=== PATIENT | female | born 1990 | race Caucasian/White ===

== ENCOUNTER → 2017-10-04 11:55 | Outpatient (CLI) | payer BC, SELFPAY ==
[2017-10-04 12:46] LABS: Color, Urine Yellow (Yellow); Glucose, Dipstick Normal (Normal); Ketone-Dipstick Negative (Negative); Leukocyte Esterase-Dipstick Negative /ul (Negative); Nitrite-Dipstick Negative (Negative); Occult Blood-Urine Negative /ul (Negative); Protein-Dipstick Negative (Negative); Specific Gravity, Urine 1.015 (1.002-1.030); Urine Bilirubin Dipstick Negative (Negative); Urine Clarity Clear (Clear); Urine Urobilinogen Normal (Normal)
[2017-10-04 13:04] LABS: Amphetamine Urine VISTA NEGATIVE (<1000 ng/mL); Barbiturate Urine VISTA NEGATIVE (< 200 ng/mL); Benzodiazepine Urine VISTA NEGATIVE (< 200 ng/mL); Cocaine Urine VISTA NEGATIVE (< 300 ng/mL); Ecstacy Urine VISTA NEGATIVE (< 500 ng/mL); Methadone Urine VISTA NEGATIVE (< 300 ng/mL); PCP Urine VISTA NEGATIVE (< 25 ng/mL); THC Urine VISTA NEGATIVE (< 50 ng/mL); Vista UDS pH Range 7
[2017-10-04 13:07] LABS: Absolute Lymphocyte Count 2.47 X10^3/ul (0.83-4.51); Basophil# 0.05 X10^3/uL; Basophil% 0.4 % (0-1); Eosinophil# 0.12 X10^3/uL; Hemoglobin 14.2 g/dl (12.0-15.0); Lymphocyte # 2.47 X10^3/ul (4.0); Lymphocyte % 19.7 % (19-41); Mean Corpuscular Volume 84.9 fL (81-99); Mean Platelet Vol. 9.8 fl (6.2-12.0); Monocyte# 0.86 X10^3/uL; Monocyte% 6.9 % (0-10); Neutrophil # 8.97 X10^3/uL (2.7-7.7); Neutrophil % 71.5 % (47-70); Platelet Count 255 K/mm3 (150-450); RBC Distribution Width CV 12.3 % (11.6-14.6); White Blood Count 12.5 K/mm3 (4.4-11.0)
[2017-10-04 13:09] LABS: COTININE Drug Screen Negative (<200 ng/mL); Mean Corpuscular Hgb 30.2 pg (27.0-32.0)
[2017-10-04 13:10] LABS: Mean Corp Hgb Conc 34.6 g/gl (32-36); POSITIVE COUNT NO; POSITIVE DIFFERENTIAL NO; POSITIVE MORPHOLOGY NO
[2017-10-04 13:24] LABS: Thyroid Stim Hormone (TSH) 1.66 uIU/mL (0.358-3.74)
[2017-10-04 14:10] LABS: HIV - WCH Non-Reactive (Nonreactive); Rubella IgG 77.5 IU/mL
[2017-10-04 14:15] LABS: Chlamydia Trachomatis by PCR Negative (Negative); Neisserai gonorrhoeae by PCR Negative (Negative); Probe Check PASS; Sample Adequacy Control PASS; Specimen Processing Control PASS
[2017-10-05 09:31] LABS: HEPATITIS B SURFACE AG Negative (Negative); Hep C Antibodies <0.1 s/co ratio (0.0-0.9)
[2017-10-11 05:19] LABS: Prenatal RPR NONREACTIVE (NONREACTIVE)
[2017-10-22 11:08] LABS: HPV Reflexed? NOT INDICATED
== END ==
PROVIDERS: Visit Provider Obstetrics & Gynecology
DX: Z34.81 Encounter for supervision of other normal pregnancy, first trimester (principal); Z12.4 Encounter for screening for malignant neoplasm of cervix; Z11.3 Encounter for screening for infections with a predominantly sexual mode of transmission
CPT/HCPCS: 36415; 80307; 81002; 84443; 85025; 86703; 86762; 86803; 87340; 87491; 87591; 88175; G0145

== ENCOUNTER → 2018-01-17 09:12 | Outpatient (CLI) | payer BC, SELFPAY ==
[2018-01-17 10:48] LABS: Hematocrit 37.1 % (37-47); Mean Corpuscular Hgb 31.3 pg (27.0-32.0); Mean Corpuscular Volume 89.2 fL (81-99); Mean Platelet Vol. 10.3 fl (6.2-12.0); Platelet Count 203 K/mm3 (150-450); RBC Distribution Width CV 12.7 % (11.6-14.6); RBC Distribution Width SD 40.6 fl (35.1-43.9); Red Blood Count 4.16 M/mm3 (4.2-5.4); White Blood Count 11.5 K/mm3 (4.4-11.0)
[2018-01-17 10:51] LABS: Glucose Challenge Gest 1H 50g 97 mg/dL (70-140)
[2018-01-17 10:52] LABS: Scan Indicated on CBC? Y/N NO
== END ==
PROVIDERS: Visit Provider Obstetrics & Gynecology
DX: Z34.83 Encounter for supervision of other normal pregnancy, third trimester (principal)
CPT/HCPCS: 36415; 82950; 85027

== ENCOUNTER → 2018-03-13 10:12 | Outpatient (CLI) | payer BC, SELFPAY ==
--- OUTSIDE RECORDS SUMMARY | 2018-05-08 12:06 | XMS RPT_ITS ---
:1990 Author Organization OHIP Care Team Providers Name Role Phone Dr. America Salcido Admitting Unavailable Dr. America Salcido Attending Unavailable Seals, Jaziel Attending Unavailable Seals, Jaziel Attending Unavailable Seals, Jaziel Attending Unavailable PROBLEMS PROBLEMS DATE TYPE CONDITION / CODE ATTENDING STATUS SOURCE 01/17/2018 Unknown Z34.83 - Encounter Jaziel Flores Active Estuardo for supervision of Community other normal Hospital , third Repository trimester / Z34.83(ICD-10) 10/04/2017 Unknown Z34.81 - Encounter SealJaziel sahni for supervision of Community other normal Hospital , first Repository trimester / Z34.81(ICD-10) 10/04/2017 Unknown Z12.4 - Encounter Jaziel Flores for screening for Community malignant neoplasm Hospital of cervix / Repository Z12.4(ICD-10) 10/04/2017 Unknown Z11.3 - Encounter Jaziel Flores for screening for Community infections with a Hospital predominantly Repository sexual mode of transmission / Z11.3(ICD-10) PROCEDURES PROCEDURES No Procedure Records FoundRESULTS RESULTS Observed: 03/13/2018 Status: F Source: ESTUARDO CULTURE, GROUP B 9:15 AM [facility] STREPTOCOCCUS REPOSITORY RITU Culture Group B Beta Streptococcus is not isolated. Performed By: #### M100.1800 #### [facility] [address] [place], [address] GLUCOSE CHALLENGE GEST Collected: 01/17/2018 Status: F Source: ESTUARDO 1H 50G 9:17 AM [facility] REPOSITORY TYPE CODE TESTS RESULT OUT OF RANGE REFERENCE UNITS LAB L501.0250 70-140 mg/dL Normal GLU GEST 97 50g 1H Performed By: #### L501.0250 #### [facility] [address] [place] [place], [address] CBC-COMPLETE BLOOD CNT Collected: 01/17/2018 Status: F Source: ESTUARDO NO DIFF 9:17 AM [facility] REPOSITORY TYPE CODE TESTS RESULT OUT OF RANGE REFERENCE UNITS LAB L100.1000 4.4-11.0 K/mm3 High WBC 11.5 LAB L100.1200 4.2-5.4 M/mm3 Low RBC 4.16 LAB L100.1300 12.0-15.0 g/dl Normal HGB 13.0 LAB L100.1400 37-47 % Normal HCT 37.1 LAB L100.1500 81-99 fL Normal MCV 89.2 LAB L100.1600 27.0-32.0 pg Normal MCH 31.3 LAB L100.1700 32-36 g/gl Normal MCHC 35.0 LAB L100.1810 11.6-14.6 % Normal RDW CV 12.7 LAB L100.1820 35.1-43.9 fl Normal RDW SD 40.6 LAB L100.1900 150-450 K/mm3 Normal PLT 203 LAB L100.2000 6.2-12.0 fl Normal MPV 10.3 Performed By: #### L100.0500 #### [facility] [address] [place], [address] URINE DRUG SCREEN Collected: 10/04/2017 Status: F Source: ESTUARDO (VISTA) 12:01 PM [facility] REPOSITORY Order Comment: List of Drugs Taken or Suspected? UNK TYPE CODE TESTS RESULT OUT OF RANGE REFERENCE UNITS LAB L505.0075 TO BE Normal CONFIRMED Result Comment: CONFIRMATORY TESTING FOR ALL POSITIVE URINE DRUG SCREEN RESULTS WILL ONLY BE SENT OUT UPON PHYSICIAN ORDER. VISTA Urine Drug Screen methods provide only preliminary analytical test results. A more specific alternate chemical method must be used in order to obtain a confirmed analytical result. Gas chromatography/mass spectrometery (GC/MS) is the preferred confirmatory method. Clinical consideration and professional judgement should be applied to any drug of abuse test result, particularly when preliminary positive results are used. URINE TCA TESTING MUST BE ORDERED SEPARATELY. USE TEST MNEMONIC: [facility] LAB L505.5005 VISTA UDS PH 7 Normal LAB L505.5015 <1000 ng/mL AMPHETAMINES Normal NEGATIVE LAB L505.5025 < 200 ng/mL BARBITIURATES Normal NEGATIVE LAB L505.5035 < 200 ng/mL BENZODIAZIPINE Normal NEGATIVE LAB L505.5045 < 300 ng/mL COCAINE Normal NEGATIVE LAB L505.5055 < 500 ng/mL ECSTACY Normal NEGATIVE LAB L505.5065 < 300 ng/mL METHADONE Normal NEGATIVE LAB L505.5075 < 300 ng/mL OPIATES Normal NEGATIVE LAB L505.5085 < 25 ng/mL PCP Normal NEGATIVE LAB L505.5095 < 50 ng/mL THC Normal NEGATIVE Performed By: #### L505.5000, L505.6240 #### [facility] [address] [place], [address] NICOTINE URINE DRUG Collected: 10/04/2017 Status: F Source: HESPERIA SCREEN 12:01 PM [facility] REPOSITORY Order Comment: List of Drugs Taken or Suspected? UNK TYPE CODE TESTS RESULT OUT OF RANGE REFERENCE UNITS LAB L505.6250 TO BE Normal CONFIRMED Result Comment: CONFIRMATORY TESTING FOR ALL POSITIVE URINE DRUG SCREEN RESULTS WILL ONLY BE SENT OUT UPON PHYSICIAN ORDER. The results of Urine Drug Screen methods provide only preliminary analytical test results. A more specific alternate chemical method must be used in order to obtain a confirmed analytical result. Gas chromatography/mass spectrometery (GC/MS) is the preferred confirmatory method. Clinical consideration and professional judgement should be applied to any drug of abuse test result, particularly when preliminary positive results are used. LAB L505.6270 <200 ng/mL Normal COT DRG Negative SCREEN Result Comment: Cotinine is the first-stage metabolite of Nicotine. Performed By: #### L505.5000, L505.6240 #### [facility] [address] [place], [address] URINALYSIS, ROUTINE Collected: 10/04/2017 Status: F Source: ESTUARDO (DIPSTICK) 12:01 PM [facility] REPOSITORY Order Comment: How was Urine Obtained? Urine, Random TYPE CODE TESTS RESULT OUT OF RANGE REFERENCE UNITS LAB L400.3000 Yellow COLOR Normal Yellow LAB L400.3050 Clear Normal CLARITY Clear LAB L400.3200 Normal mg/dl Normal GLUCOSE, UR Normal LAB L400.3300 Negative mg/dL Normal BILIRUBIN URINE Negative LAB L400.3400 Negative mg/dl Normal KETONE UR Negative LAB L400.3465 1.002-1.030 Normal SP.GR. DIPSTX 1.015 LAB L400.3550 5.0 - 8.0 pH UR Normal 7.0 LAB L400.3600 Negative mg/dl PROT Normal DIPSTX Negative LAB L400.3700 Normal mg/dl Normal UROBILI Normal LAB L400.3750 Negative Normal NITRITE UR Negative LAB L400.3780 Negative /ul Normal OCCULT BLOOD-UR Negative LAB L400.3800 Negative /ul LEUK Normal ESTERASE Negative Performed By: #### L400.2010 #### [facility] [address] [place], [address] CBC W/DIFF, AUTOMATED Collected: 10/04/2017 Status: F Source: ESTUARDO 12:01 PM [facility] REPOSITORY TYPE CODE TESTS RESULT OUT OF RANGE REFERENCE UNITS LAB L100.1000 4.4-11.0 K/mm3 High WBC 12.5 LAB L100.1200 4.2-5.4 M/mm3 Normal RBC 4.70 LAB L100.1300 12.0-15.0 g/dl Normal HGB 14.2 LAB L100.1400 37-47 % Normal HCT 41.0 LAB L100.1500 81-99 fL Normal MCV 84.9 LAB L100.1600 27.0-32.0 pg Normal MCH 30.2 LAB L100.1700 32-36 g/gl Normal MCHC 34.6 LAB L100.1810 11.6-14.6 % Normal RDW CV 12.3 LAB L100.1820 35.1-43.9 fl Normal RDW SD 37.0 LAB L100.1900 150-450 K/mm3 Normal PLT 255 LAB L100.2000 6.2-12.0 fl Normal MPV 9.8 LAB L100.2100 47-70 % High NEUT% 71.5 LAB L100.2200 19-41 % Normal LY% 19.7 LAB L100.2300 0-10 % Normal MONO% 6.9 LAB L100.2400 0-5 % Normal EO% 1.0 LAB L100.2500 0-1 % Normal BASO% 0.4 LAB L100.2550 0.0-0.9 % Normal IM GRAN % 0.500 Result Comment: IG% - Immature Granulocytes (promyelocytes, myelocytes and metamyelocytes) > 1% indicates that a LEFT SHIFT is Present. LAB L100.2620 2.0-7.7 X10 3/uL High Absolute Neut 9.0 LAB L100.2720 0.83-4.51 X10 3/ul Normal Absolute Lymph 2.47 Performed By: #### L100.0100 #### [facility] [address] THYROID STIM HORMONE Collected: 10/04/2017 Status: F Source: HESPERIA (TSH) 12:01 PM [facility] REPOSITORY TYPE CODE TESTS RESULT OUT OF RANGE REFERENCE UNITS LAB L501.9520 0.358-3.74 uIU/mL Normal TSH 1.66 Performed By: #### L501.9520 #### [facility] [address] [place], [address] RUBELLA IGG Collected: 10/04/2017 Status: F Source: HESPERIA 12:01 PM [facility] REPOSITORY TYPE CODE TESTS RESULT OUT OF RANGE REFERENCE UNITS LAB L509.4000 IU/mL Normal Rubella IgG 77.5 Result Comment: Antibody results Interpretation of Immune Status < 5 IU/ml Presumed Non-immune 5 - < 10 IU/ml Equivocal > or = 10 IU/ml Presumed Immune Performed By: #### L509.4000, L3890.6005 #### [facility] [address] [place], [address] HIV - WCH Collected: 10/04/2017 Status: F Source: ESTUARDO 12:01 PM [facility] REPOSITORY TYPE CODE TESTS RESULT OUT OF RANGE REFERENCE UNITS LAB L3890.6005 Nonreactive Normal HIV - WCH Non-Reactive Performed By: #### L509.4000, L3890.6005 #### [facility] [address] [place], [address] T AND S-NO Collected: 10/04/2017 Status: F Source: HESPERIA CHARGE W/PNP 12:01 PM [facility] REPOSITORY Order Comment: Reason for Type AND Screen/Red Cells: Surgery? N TYPE CODE TESTS RESULT OUT OF RANGE REFERENCE UNITS LAB B10.0800 A Normal BLOOD POSITIVE TYPE GEL LAB B100.4050 Normal Ab SCREEN NEGATIVE GEL Performed By: #### B100.7550 #### [facility] [address] [place], [address] HEPATITIS B SURFACE Collected: 10/04/2017 Status: F Source: ESTUARDO AG 12:01 [facility] REPOSITORY TYPE CODE TESTS RESULT OUT OF RANGE REFERENCE UNITS LAB L3100.0400 Negative Normal HB Negative SURF AG Result Comment: Performed at: - [facility] [id number] [employer] Facing Baster: Patricio Wang PhD, Phone: [phone] Performed By: #### L3100.0390, L3100.0625 #### [facility] (refer to report for specific site) refer to report for address and phone number HEPATITIS C ANTIBODIES Collected: 10/04/2017 Status: F Source: ESTUARDO 12:01 [facility] REPOSITORY TYPE CODE TESTS RESULT OUT OF RANGE REFERENCE UNITS LAB L3100.0650 0.0-0.9 s/co ratio Normal HEP C AB <0.1 Result Comment: Negative: < 0.8 Indeterminate: 0.8 - 0.9 Positive: > 0.9 The CDC recommends that a positive HCV antibody result be followed up with a HCV Nucleic Acid Amplification test (214505). Performed By: #### L3100.0390, L3100.0625 #### [facility] (refer to report for specific site) refer to report for address and phone number RPR Collected: 10/04/2017 Status: F Source: HESPERIA 12:01 PM [facility] REPOSITORY TYPE CODE TESTS RESULT OUT OF REFERENCE UNITS RANGE LAB L700.5100 NONREACTIVE Normal RPR NONREACTIVE Performed By: #### L700.5100 #### [facility] [address] [place], [address] CT/NG WCH BY PCR Collected: 10/04/2017 Status: F Source: HESPERIA 12:00 [facility] REPOSITORY TYPE CODE TESTS RESULT OUT OF RANGE REFERENCE UNITS LAB L8200.2100 Negative Normal Chlam Negative Trac PCR LAB L8200.2200 Negative Normal NG by Negative PCR Performed By: #### L8200.2000 #### [facility] [address] [place], [address] PAP I-G W/RFX HRHPV Collected: 10/04/2017 Status: F Source: HESPERIA 12:00 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 LAB L7400.0900 Normal ADEQ Result Comment: Satisfactory for evaluation. Endocervical and/or squamous metaplastic cells (endocervical component) are present. LAB L7400.1400 Normal PERFORM Result Comment: Performed by Meño Nolasco Retanner (ASCP) LAB L7400.2550 Normal COMMENT Result Comment: The pap smear is a screening test designated to aid in the detection of pre-malignant and malignant conditions of the uterine cervix. It is not a diagnostic procedure and should not be used as the sole means of detecting cervical cancer. Both false-positive and false-negative reports do occur. LAB L7400.2575 Normal TEST METHOD Result Comment: This liquid based ThinPrep(R) pap test was screened with the use of an image guided system. LAB L7400.2600 Normal COMM Result Comment: The HPV DNA reflex criteria were not met with this specimen result therefore, no HPV testing was performed. Performed By: #### L7400.0350 #### [facility] (refer to report for specific site) refer to report for address and phone number Observed: 04/13/2017 Status: F Source: [facility] CULTURE, URINE 1:25 PM [facility] REPOSITORY Test Name: Culture, Urine Culture Status: Final Culture Report: Growth Micro Source: Urine - clean catch ORGANISM ID: 1 - 50,000-75,000 CFU/ml STAPHYLOCOCCUS SAPROPHYTICUS ANTIBIOTIC INTERPRETATION ALVAREZ STATUS Clindamycin S 0.25 C Doxycycline S <= 0.5 C Nitrofurantoin S <= 16 C Oxacillin R 2 C Vancomycin S 1 C Performed By: #### URCUL #### Unless otherwise noted, all testing performed by [address] [address] CLIA: [id number] Political Reporter: Martin John M.D. ALLERGIES ALLERGIES No Allergies Records FoundENCOUNTERS ENCOUNTERS ADMIT/DISCHARGE ACCOUNT NUMBER ADMITTING ENCOUNTER LOCATION SOURCE CLASS 03/13/2018 [id number] [facility] ding:[facility] Repository 01/17/2018 [id number] [facility] ding:WOBLAB Repository 10/04/2017 [id number] [facility] ding:WOBLAB Repository 04/13/[id number] Omari Ambulatory [facility] Repository PAYERS PAYERS ENCOUNTER GUARANTOR PAYER SUBSCRIBER SOURCE 03/13/2018 ZIGGY Primary Emma MouldDOB: Estuardo [id number] Insurance:ANTHEMPolic [id number] Number[facility] [address] [place], [place] [id number] Repository [address]Uaq: [phone]) Date:[id number] [phone] () [id number], [place] [address]RH: 03/13/2018 Secondary NOT GIVENUNK [place] Insurance:SELF PAY [facility] Number: Effective Repository Date:2018-03-13 01/17/2018 Emma [id number] Primary Emma MouldDOB: Estuardo [address] [address] Insurance:ANTHEMPolic [id number] [address] y Number: Hospital [address]Psl: 419 [id number] Repository [phone] () Date:[id number] [address] [place] [address]: 01/17/2018 Secondary NOT GIVENUNK [place] Insurance:SELF PAY [facility] Number: Effective Repository Date:2018-01-17 10/04/2017 ZIGGY Primary Emma MouldDOB: [place] [id number] Insurance:ANTHEMPolic [id number] y Number: [address] [id number] Repository [address]Ffb: [phone]) Date:[id number] [phone] () [address] [place] [address]IY: 10/04/2017 Secondary NOT GIVENUNK [place] Insurance:SELF PAY Community [facility] Number: Effective Repository Date:2017-10-04 04/13/2017 Primary ZIGGY N [facility] Insurance:[employer] Cross MOULDDOB: Celestine Number: [id number] [facility] [id number] [address] [place] [address] RD Repository Date:Plan Name:[address] [address]Oou: ()
== END ==
PROVIDERS: Visit Provider Obstetrics & Gynecology
DX: Z36.85 Encounter for antenatal screening for Streptococcus B (principal)
CPT/HCPCS: 87081

== ENCOUNTER 2018-04-15 18:58 | Inpatient (IN) | payer BC, SELFPAY ==
[2018-04-15 19:37] VITALS: BMI 32.9
[2018-04-15] MEDS: Lactated Ringers 1,000 ML 50 ML IV (19:45)
[2018-04-15 20:13] LABS: Hematocrit 37.7 % (37-47); Hemoglobin 13.1 g/dl (12.0-15.0); Mean Corp Hgb Conc 34.7 g/gl (32-36); Mean Corpuscular Hgb 30.1 pg (27.0-32.0); Mean Corpuscular Volume 86.7 fL (81-99); Mean Platelet Vol. 10.3 fl (6.2-12.0); Platelet Count 235 K/mm3 (150-450); RBC Distribution Width CV 13.2 % (11.6-14.6); RBC Distribution Width SD 40.1 fl (35.1-43.9); Red Blood Count 4.35 M/mm3 (4.2-5.4); White Blood Count 11.4 K/mm3 (4.4-11.0)
[2018-04-15 20:14] LABS: Scan Indicated on CBC? Y/N NO
[2018-04-15] MEDS: 0.9% Saline Lock 10 ML Syringe IV (20:56)
[2018-04-15] MEDS: miSOPROStol 25 MCG TABLET VAGINAL (20:56)
[2018-04-16] MEDS: miSOPROStol 25 MCG TABLET VAGINAL ×3 (00:59→09:46)
[2018-04-16] MEDS: 0.9% Saline Lock 10 ML Syringe IV ×2 (09:24→14:07)
--- NOTE | 2018-04-16 12:14 | PCM.PN.OB ---
Subjective: Comfortable. Objective: Afeb VSS FHR tracing Cat 1. - Physical Exam General: Alert, Oriented x3, Cooperative, No apparent distress Lungs: Clear to auscultation, Normal air movement Cardiovascular: Regular rate, Regular Rhythm Abdomen: Soft, Non Tender, Non-Distended, Gravid, Appropriate for Gestational Age Extremities: No edema, No Calf Tenderness Skin: No rashes Neurological: Neuro grossly intact Psych/Mental Status: Normal Affect Comment: CE 2-3 40% -2 Weight: 204 lb 2.369 oz Body Mass Index (BMI) 32.9 Laboratory Tests Past 24 Hrs 04/15/18 04/15/18 19:45 19:45 WBC 11.4 H RBC 4.35 Hgb 13.1 Hct 37.7 MCV 86.7 MCH 30.1 MCHC 34.7 RDW 13.2 RDW Differential 40.1 Plt Count 235 MPV 10.3 Blood Type A POSITIVE Antibody Screen NEGATIVE Medical Necessity - Tobacco Use Smoking Status: Never smoker Assessment/Plan Now s/p 4 doses of cytote. Cervix now more favorable. Will start pitocin augmentation. AROM once ray regularly.
[2018-04-16] MEDS: Oxytocin 30 units/NS 500 ml 30 UNITS/500 ML IV.SOLN IV (14:03)
--- NOTE | 2018-04-16 17:00 | PCM.PN.OB ---
Subjective: Feeling contractions somewhat Objective: Afeb VSS FHR tracing Cat 1 - Physical Exam General: Alert, Oriented x3, Cooperative, No apparent distress Abdomen: Soft, Non Tender, Non-Distended, Gravid, Appropriate for Gestational Age Skin: No rashes Neurological: Neuro grossly intact Psych/Mental Status: Normal Affect Comment: CE /-2 Weight: 204 lb 2.369 oz Body Mass Index (BMI) 32.9 Laboratory Tests Past 24 Hrs 04/15/18 04/15/18 19:45 19:45 WBC 11.4 H RBC 4.35 Hgb 13.1 Hct 37.7 MCV 86.7 MCH 30.1 MCHC 34.7 RDW 13.2 RDW Differential 40.1 Plt Count 235 MPV 10.3 Blood Type A POSITIVE Antibody Screen NEGATIVE Medical Necessity - Tobacco Use Smoking Status: Never smoker Assessment/Plan AROM performed with clear fluid noted. Pitocin at 8 mu/min.
[2018-04-16] MEDS: Lactated Ringers 1,000 ML 50 ML IV (22:30)
[2018-04-16] MEDS: fentaNYL-bupivacaine (epidural) 100 ML BAG EPIDURAL (23:16)
[2018-04-17] MEDS: Lactated Ringers 1,000 ML 50 ML IV (01:30)
[2018-04-17] MEDS: fentaNYL-bupivacaine (epidural) 100 ML BAG EPIDURAL (03:32)
--- NOTE | 2018-04-17 04:49 | PCM.PN.OB ---
Subjective: Pushing well. Comfortable with epidural. Objective: Afeb VSS FHR with some minor decels with pushing efforts. Overall reassuring. - Physical Exam General: Alert, Oriented x3, Cooperative, No apparent distress Comment: FD +2 station Weight: 204 lb 2.369 oz Body Mass Index (BMI) 32.9 Medical Necessity - Tobacco Use Smoking Status: Never smoker Assessment/Plan Pushing well. Expect soon.
--- NOTE | 2018-04-17 04:56 | PCM.OB.VAG ---
Vaginal Delivery Maternal Presentation: Medically Indicated Induction 41 weeks for post dates induction Method of Induction: Pitocin, Amniotomy, Cytotec Medical Reason for Induction: Post term Amniotic Membrane Rupture Type: Artificial Rupture of Membrane time: 1644 Amniotic Fluid Description: Clear Final MICHELL: 04/09/18 Final MICHELL Source: US <20 weeks Gestational age: 41 Weeks and 1 Days Date of Procedure: 04/17/18 Pre-Operative Diagnosis: Labor Post-Operative Diagnosis: same Surgery/ Procedure Performed: Spontaneous Vaginal Delivery Anesthesiologist: Bryce Bourne Type of Anesthesia: Epidural Description of Procedure: Received 4 doses of vaginal cytotec then was started on pitocin augmentation. AROM was performed once contraction pattern established. Progressed to FD then pushed for about 2 1/2 hours to deliver a live female without complication. There was a loose cord around the neck at delivery reduced prior to delivery of the body. The nose and mouth were suctioned with bulb suction. The baby dried and placed on Mom's chest. Delayed cord clamping was employed. Apgars were 8/9. The placenta delivered spontaneously intact with a centrally located 3VC. The placenta was heart shaped. The uterus contracted well. A small first degree posterior vaginal tear was repaired with 2-0 Vicryl. Presentation: Vertex Placental Delivery Description: Spontaneous Placenta Disposition: [facility] Percentage of Placenta Abruption: 0 Cord Vessel Description: 3 Vessels Drain: Johnson to straight drain Estimated Blood Loss: 300cc Infant A gender: Female (1 minute): 8 (5 minute): 9 Episiotomy Description: None Laceration: Midline, Vaginal Extension/lac, 1st degree Medications given after delivery: IV Pitocin Complications: None
--- NOTE | 2018-04-17 04:59 | DCINST_ITS ---
Discharge Diet: No Restrictions Discharge Activity: Return to Normal Activity, May Drive, May Shower Return to work on:: 06/16/18 May shower in (days): 0 May resume sexual activity in: 6 weeks Call your doctor if your incision/area has: Sudden Increased Bleeding, Foul Smelling Discharge Call your doctor if you observe: Fever of 101 or Higher, Inability to urinate, Inability to have a bowel movement, Using more than one pad per hour, Shortness of breath, Chest pain, Calf discomfort, Uncontrolled pain Cleanse incision/area with: Soap & Water Additional Instructions: If you experience any of the following, contact your healthcare provider. * Bleeding that soaks a pad every hour for 2 hours * Fever 100.4 or higher * Unrelieved incision or abdominal pain * Swelling, redness, discharge or bleeding from your incision or episiotomy site * Your incision begins to separate * Problems urinating (including inability to urinate or burning while urinating). * Visual changes * Severe headache * Flu-like symptoms * Pain or redness in one of both of your breasts * Pain, warmth, tenderness or swelling in your legs, especially the calf area * Frequent nausea and vomiting * Symptoms of depression or anxiety If you experience any of the following, call 911 or go to the nearest Emergency Room. * Chest pain * Problems breathing * Seizure activity * Partial or complete paralysis of a body part, slurred speech, weakness or drooping of the face, or a sudden inability to walk or hold your balance Allergies/Adverse Reactions: Allergies cefprozil [From Cefzil] Allergy (Verified 04/15/18 19:40) Rash Medications to take at Discharge Vits [Prenatabs FA ] 1 tablet PO DAILY 04/15/18 Ibuprofen 600 mg PO 4X/DAY #30 tab 04/17/18 The following prescriptions were given: Ibuprofen 600 mg PO 4X/DAY #30 tab Please Follow Up With: Jaziel Flores MD When: 6 weeks Primary Care Physician: Care Physician,No Primary [Primary Care Provider] - Test Results: Test results from this visit will be discussed in further detail at your follow- up appointment, if applicable. Proposed Discharge Date: 04/19/18
[2018-04-17] MEDS: Oxytocin 30 units/NS 500 ml 30 UNITS/500 ML IV.SOLN 334 UNITS IV (05:44)
[2018-04-17] MEDS: Oxytocin 30 units/NS 500 ml 30 UNITS/500 ML IV.SOLN 167 UNITS IV (06:14)
[2018-04-17] MEDS: Prenatal Vits Tablet 1 TABLET PO (11:02)
[2018-04-17 12:00] VITALS: BP 119/71; PULSE 72; RESP 16; TEMP 36.1; O2SAT 99
--- NOTE | 2018-04-17 12:00 | NURSING ---
infant awake, but having difficulty latching. clamps down instead of sucking. AMANDA VargasCLC notified and will come see pt
[2018-04-17 15:54] VITALS: BP 119/67; PULSE 89; RESP 14; TEMP 36.8; O2SAT 97
[2018-04-17 19:29] VITALS: BP 119/81; PULSE 76; RESP 18; TEMP 36.7; O2SAT 97
[2018-04-18 00:48] VITALS: BP 134/67; PULSE 89; RESP 18; TEMP 36.6
[2018-04-18] MEDS: Ibuprofen 600 MG Tablet PO (01:01)
[2018-04-18 04:10] VITALS: BP 108/66; PULSE 88; RESP 18; TEMP 36.6
[2018-04-18 04:31] LABS: Hemoglobin 11.7 g/dl (12.0-15.0); Mean Corp Hgb Conc 34.4 g/gl (32-36); Mean Corpuscular Hgb 30.4 pg (27.0-32.0); Mean Corpuscular Volume 88.3 fL (81-99); Mean Platelet Vol. 9.6 fl (6.2-12.0); Platelet Count 183 K/mm3 (150-450); RBC Distribution Width CV 13.2 % (11.6-14.6); RBC Distribution Width SD 40.7 fl (35.1-43.9); Red Blood Count 3.85 M/mm3 (4.2-5.4); White Blood Count 16.5 K/mm3 (4.4-11.0)
[2018-04-18 04:32] LABS: Scan Indicated on CBC? Y/N NO
[2018-04-18 08:40] VITALS: BP 121/81; PULSE 66; RESP 16; TEMP 36.4
--- NOTE | 2018-04-18 08:42 | PCM.PN.OB ---
Subjective: No specific complaints. Bleeding light. Breast feeding. Objective: Afeb VSS Hgb stable PP day#1. - Physical Exam General: Alert, Oriented x3, Cooperative, No apparent distress Lungs: Clear to auscultation, Normal air movement Cardiovascular: Regular rate, Regular Rhythm Abdomen: Soft, Non Tender, Non-Distended, - - Fundus firm nontender Extremities: No edema Skin: No rashes Neurological: Neuro grossly intact Psych/Mental Status: Normal Affect Comment: Lochia appropriate. Vital Signs Temp Pulse Resp BP Pulse Ox 97.8 F 88 18 108/66 97 04/18/18 04:10 04/18/18 04:10 04/18/18 04:10 04/18/18 04:10 04/17/18 19:29 Oxygen Delivery Method Room Air Weight: 204 lb 2.369 oz Body Mass Index (BMI) 32.9 Intake and Output for Last 24 Hours 04/16/18 04/17/18 04/18/18 23:59 23:59 23:59 Intake Total 4006 / 4006 Output Total 1800 / 1800 Balance 2206 / 2206 Laboratory Tests Past 24 Hrs 04/18/18 04:15 WBC 16.5 H RBC 3.85 L Hgb 11.7 L Hct 34.0 L MCV 88.3 MCH 30.4 MCHC 34.4 RDW 13.2 RDW Differential 40.7 Plt Count 183 MPV 9.6 Medical Necessity - Tobacco Use Smoking Status: Never smoker Assessment/Plan Doing well on PP day#1. Continue routine PP care.
--- NOTE | 2018-04-18 08:46 | PCM.DC.SUM ---
Discharge Date and Diagnosis Date of Admission: 04/15/18 Date of Discharge: 04/19/18 - Primary Discharge Diagnosis Post dates , Hospital Course and Treatment Operations: None Procedures: - - Cytotec, pitocin induction of labor. Epidural, Summary of Care Provided: The patient is a 27 year old F [admitted at 41 weeks ega for induction of labor due to postdates . Cytotec/pitocin induction was performed with resultant without complication. Post course unremarkable. Discharged home on PP day#2.] - Physical Exam Vital Signs Temp Pulse Resp BP Pulse Ox 97.8 F 88 18 108/66 97 04/18/18 04:10 04/18/18 04:10 04/18/18 04:10 04/18/18 04:10 04/17/18 19:29 Oxygen Delivery Method Room Air Weight: 204 lb 2.369 oz Body Mass Index (BMI) 32.9 Intake and Output for Last 24 Hours 04/16/18 04/17/18 04/18/18 23:59 23:59 23:59 Intake Total 4006 / 4006 Output Total 1800 / 1800 Balance 2206 / 2206 Laboratory Tests Past 24 Hrs 04/18/18 04:15 WBC 16.5 H RBC 3.85 L Hgb 11.7 L Hct 34.0 L MCV 88.3 MCH 30.4 MCHC 34.4 RDW 13.2 RDW Differential 40.7 Plt Count 183 MPV 9.6 Discharge Diet: No Restrictions Discharge Activity: Return to Normal Activity, May Drive, May Shower Return to work on:: 06/16/18 May shower in (days): 0 May resume sexual activity in: 6 weeks Call your doctor if your incision/area has: Sudden Increased Bleeding, Foul Smelling Discharge Call your doctor if you observe: Fever of 101 or Higher, Inability to urinate, Inability to have a bowel movement, Using more than one pad per hour, Shortness of breath, Chest pain, Calf discomfort, Uncontrolled pain Cleanse incision/area with: Soap & Water Home Medications: Medications to take at Discharge Vits [Prenatabs FA ] 1 tablet PO DAILY 04/15/18 Ibuprofen 600 mg PO 4X/DAY #30 tab 04/17/18 Following Prescrptions Were Given to Patient: Ibuprofen 600 mg PO 4X/DAY #30 tab Primary Care Physician: Care Physician,No Primary [Primary Care Provider] - Please Follow Up With: Jaziel Flores MD When: 6 weeks Disposition: Home Minutes spent on discharge:: 15 Patient Condition:: Good Medical Necessity - Tobacco Use Smoking Status: Never smoker Meaningful Use Info Meaningful Use Diagnoses (Choose all that apply): None applicable
[2018-04-18] MEDS: Prenatal Vits Tablet 1 TABLET PO (13:36)
[2018-04-18 14:00] VITALS: BP 116/66; PULSE 81; RESP 16; TEMP 36.5
== END 2018-04-18 19:05 | disposition home or self-care (01) | DRG 807 ==
PROVIDERS: Admitting Provider Obstetrics & Gynecology; Referring Provider Obstetrics & Gynecology; Visit Provider Obstetrics & Gynecology
DX: O48.0 Post-term pregnancy (principal); O69.81X0 Labor and delivery complicated by cord around neck, without compression, not applicable or unspecified; O76 Abnormality in fetal heart rate and rhythm complicating labor and delivery; O70.0 First degree perineal laceration during delivery; Z3A.41 41 weeks gestation of pregnancy; Z37.0 Single live birth
CPT/HCPCS: 59025; 59050; 85027; 86850; 86900; 99218; J7120; A4216; G0378

== ENCOUNTER 2018-04-21 12:20 | Outpatient (CLI) | payer BC, SELFPAY | END 2018-04-21 13:30 | disposition home or self-care (01) | LOC: WPOUT 12:39 → WP 12:40 | PROVIDERS: Referring Provider Obstetrics & Gynecology; Visit Provider Obstetrics & Gynecology | DX: Z39.1 Encounter for care and examination of lactating mother (principal) | CPT/HCPCS: 96152 ==

== ENCOUNTER → 2018-11-24 11:02 | Outpatient (CLI) | payer BC, SELFPAY ==
[2018-11-24 13:10] LABS: hCG Titer Quant., Serum < 1 mIU/mL (1-3)
== END ==
PROVIDERS: Visit Provider Obstetrics & Gynecology
DX: N92.1 Excessive and frequent menstruation with irregular cycle (principal)
CPT/HCPCS: 36415; 84702

== ENCOUNTER → 2019-01-19 11:25 | Outpatient (CLI) | payer BC, SELFPAY ==
[2019-01-19 17:17] LABS: Chlamydia Trachomatis by PCR Negative (Negative); Neisserai gonorrhoeae by PCR Negative (Negative); Probe Check PASS; Sample Adequacy Control PASS; Specimen Processing Control PASS
== END ==
PROVIDERS: Visit Provider Obstetrics & Gynecology
DX: Z11.3 Encounter for screening for infections with a predominantly sexual mode of transmission (principal)
CPT/HCPCS: 87491; 87591

== ENCOUNTER → 2019-02-05 11:53 | Outpatient (CLI) | payer BC, SELFPAY ==
[2019-02-05 13:42] LABS: Color, Urine Yellow (Yellow); Glucose, Dipstick Normal (Normal); Ketone-Dipstick Negative (Negative); Leukocyte Esterase-Dipstick 25 /ul (Negative); Nitrite-Dipstick Negative (Negative); Occult Blood-Urine Negative /ul (Negative); Protein-Dipstick Negative (Negative); Urine Bilirubin Dipstick Negative (Negative); Urine Clarity Clear (Clear); Urine Urobilinogen Normal (Normal)
[2019-02-05 13:55] LABS: Absolute Lymphocyte Count 2.23 X10^3/uL (0.83-4.51); Absolute Neutrophil Count 8.3 X10^3/uL (2.0-7.7); Basophil# 0.07 X10^3/uL; Basophil% 0.6 % (0-1); Eosinophil# 0.09 X10^3/uL; Eosinophils% 0.8 % (0-5); Hematocrit 43.9 % (37-47); Hemoglobin 15.1 g/dL (12.0-15.0); Lymphocyte # 2.23 X10^3/ul (4.0); Lymphocyte % 19.2 % (19-41); Mean Corp Hgb Conc 34.4 g/dL (32-36); Mean Corpuscular Hgb 29.9 pg (27.0-32.0); Mean Corpuscular Volume 86.9 fL (81-99); Mean Platelet Vol. 10.2 fl (6.2-12.0); Monocyte# 0.86 X10^3/uL; Monocyte% 7.4 % (0-10); NRBC Flagged by Analyzer 0 % (0-5); Neutrophil # 8.32 X10^3/uL (2.7-7.7); Neutrophil % 71.5 % (47-70); Platelet Count 315 K/mm3 (150-450); RBC Distribution Width SD 38.1 fl (35.1-43.9); Red Blood Count 5.05 M/mm3 (4.2-5.4); White Blood Count 11.6 K/mm3 (4.4-11.0)
[2019-02-05 13:56] LABS: Amphetamine Urine VISTA NEGATIVE (<1000 ng/mL); Barbiturate Urine VISTA NEGATIVE (< 200 ng/mL); Benzodiazepine Urine VISTA NEGATIVE (< 200 ng/mL); Cocaine Urine VISTA NEGATIVE (< 300 ng/mL); Ecstacy Urine VISTA NEGATIVE (< 500 ng/mL); Methadone Urine VISTA NEGATIVE (< 300 ng/mL); PCP Urine VISTA NEGATIVE (< 25 ng/mL); THC Urine VISTA NEGATIVE (< 50 ng/mL); Vista UDS pH Range 6
[2019-02-05 14:42] LABS: HIV - WCH Non-Reactive (Nonreactive); Hepatitis B Surface Antigen Non-Reactive (Nonreactive); Hepatitis C Antibody Non-Reactive (Nonreactive); Rubella IgG 65.7 IU/mL
[2019-02-06 02:37] LABS: Prenatal RPR NONREACTIVE (NONREACTIVE)
== END ==
PROVIDERS: Visit Provider Advanced Practice Midwife
DX: Z34.81 Encounter for supervision of other normal pregnancy, first trimester (principal)
CPT/HCPCS: 36415; 80307; 81002; 84443; 85025; 86703; 86762; 86803; 87340

== ENCOUNTER → 2019-06-17 09:16 | Outpatient (CLI) | payer BC, SELFPAY ==
[2019-06-17 10:50] LABS: Hematocrit 35.6 % (37-47); Hemoglobin 12.1 g/dL (12.0-15.0); Mean Corpuscular Hgb 29.7 pg (27.0-32.0); Mean Corpuscular Volume 87.3 fL (81-99); Mean Platelet Vol. 10.4 fl (6.2-12.0); Platelet Count 220 K/mm3 (150-450); RBC Distribution Width CV 12.5 % (11.6-14.6); RBC Distribution Width SD 39.5 fl (35.1-43.9); Red Blood Count 4.08 M/mm3 (4.2-5.4); White Blood Count 9.9 K/mm3 (4.4-11.0)
[2019-06-17 10:57] LABS: Glucose Challenge Gest 1H 50g 119 mg/dL (70-140)
== END ==
PROVIDERS: Visit Provider Obstetrics & Gynecology
DX: Z34.82 Encounter for supervision of other normal pregnancy, second trimester (principal)
CPT/HCPCS: 36415; 82950; 85027

== ENCOUNTER → 2019-08-14 | Outpatient (CLI) | payer BC, SELFPAY | END | disposition home or self-care (01) | LOC: LABSPEC 15:00 | PROVIDERS: Referring Provider Obstetrics & Gynecology; Visit Provider Obstetrics & Gynecology | DX: Z36.85 Encounter for antenatal screening for Streptococcus B (principal) | CPT/HCPCS: 87081 ==

== ENCOUNTER 2019-09-17 08:00 | Inpatient (IN) | payer BC, SELFPAY ==
[2019-09-17] VITALS (41 sets, daily range): BP systolic 103–140; BP diastolic 50–89; PULSE 56–106; RESP 18; TEMP 36.1–37.1; O2SAT 96–100; BMI 32.4
[2019-09-17] MEDS: Lactated Ringers 1,000 ML 50 ML IV (08:00)
--- NOTE | 2019-09-17 08:33 | PCM.HP.OB ---
- Problem List (1) 41 weeks gestation of Status: Acute (2) Spontaneous onset of labor Status: Acute History Date of Admission: 09/17/19 Final MICHELL: 09/10/19 Final MICHELL Source: US <20 weeks Gestational age: 41 Weeks and 0 Days History of this : This is a 29 year-old, G [2], P [1], at 41 weeks gestational age. Allergies cefprozil [From Cefzil] Allergy (Verified 04/15/18 19:40) Rash Home Medications: Home Medications Vits [Prenatabs FA ] 1 tablet PO DAILY 04/15/18 Smoking Status: Never smoker Alcohol: None Number of Fetus(es): 1 NST - FHR Rate Baby A Baseline: 130 Variability:: Moderate Accelerations:: 15 x 15 Decelerations:: None NST Reactive:: Yes FHR Category:: Category I Uterine Activity:: 5-6m History Past Pregnancies: PRIOR DELIVERY HISTORY DEL DATE GEST LAB WT LB WT OZ TYPE ANES LABOR [place] May 03 41 23 8 6 Vag Epidural No Labs: Course Did the patient receive Yes care? Labs Blood Type: A RH: POSITIVE RPR/VDRL/Syphilis Nonreactive Rubella status Immune HbSAg Negative Date Done: 02/05/19 Chlamydia Negative Gonorrhea Negative HIV/AIDS Non-Reactive Group B Strep: Negative Current Obstetrical History Gestational Diabetes No Incompetent Cervix No Infertility No IUGR No Macrosomia No Hypertension/Pre-eclampsia No Placenta Previa/Abruption No PTL/PROM No Uterine anomaly No Oligohydramnios No Polyhydramnios No Multiple gestation No Past Medical History Asthma No Diabetes No Hypertension No Heart disease No Mitral valve prolapse No Neurologic/Seizure disorder/ No Migraines Kidney disease No Liver disease No Varicosities No Clotting disorders/Hx of DVT No Thyroid Dysfunction No Other medical diseases No Psychiatric disorders No Major trauma No Abnormal PAP smear No Sleep apnea No Mammogram in the last 2 years No Social History Marital Status: Alleged father Jordan Ladd Hx Smoking No Smoking Status Never smoker Expected Delivery Method: Spontaneous Vaginal Number of Visits: 13 Review of Systems Constitutional: Denies: Chills, Fever, Weight Change HEENT: Denies: Head Aches, Sinus Congestion, Sinus Drainage Cardiovascular: Denies: Chest Pain, Palpitations Respiratory: Denies: Cough, Shortness of breath at rest, Sputum production Gastrointestinal: Denies: Abdominal Pain, Nausea, Vomiting Genitourinary: Denies: Dysuria Musculoskeletal: Denies: Joint Pain, Joint Tenderness Skin: Denies: Rash, Wounds Neurological: Denies: Numbness, Tingling, Focal weakness Psychiatric: Denies: Anxiety, Depression, Homicidal Ideations, Suicidal Ideations Hematologic/ Lymphatic: Denies: Easy Bruising, Easy Bleeding Physical Exam Vitals: Vital Signs Temp Pulse BP Pulse Ox 97.8 F 103 H 140/89 H 98 09/17/19 07:00 09/17/19 07:03 09/17/19 07:00 09/17/19 07:03 General: Alert, Oriented x3, No apparent distress HEENT: Atraumatic, Normocephalic. Negative for: Thyromegaly, Lymphadenopathy Cardiovascular: Regular rate, Regular Rhythm Lungs: Clear to auscultation Abdomen: Bowel Sounds Present, Gravid Neurological: Deep Tendon Reflexes 2+/4 and Symmetrical, Neuro grossly intact [employer]ING ASSEMBLER: Normal external genitalia. Negative for: Vulvar lesions Estimated gestational size: Appropriate for gestational size Presentation: Cephalic Cervix Dilation (cm): 6.5 Station: -2 Effacement (%): 90 Assessment/Plan All Active Problems 41 weeks gestation of (Acute) Spontaneous onset of labor (Acute) A/P: This is a 29 year-old, G [2], P [1], at 41 weeks gestational age. Onset of contractions at 0300 which have become closer and stronger UC 5-6m NST Category I reactive SVE 6-7/90/-2 AROM of clear fluid Plans natural labor Expect Procedure Criteria Procedure Type: Essential Procedure Essential: Yes Criteria Statement: On 06/30/2019 the [facility] Health ([facility]) Public Order signed by [facility] Director Mar Mcneill M.D., regarding the Management of Non-Essential Surgeries and Procedures for the purpose of preserving Personal Protective Equipment (PPE) and critical hospital capacity and resources within [place] went into effect as of 07/01/2019 at 5:00PM. According to the [facility] Public Order: This action will remain in full force and effect until the State of Emergency declared by the Governor no longer exists or the Director of the [facility] rescinds or modifies this Order. This [facility] order stated all non-essential or elective surgeries and procedures that utilize PPE should be delayed unless there is undue risk to the current or future health of a patient. After reviewing the aforementioned [facility] Public Order and the patient's clinical case, I have determined that the scheduled procedure meets the criteria to go forward. Risk to Patient if Procedure Delayed: Risk of rapidly worsening to severe symptoms if delayed - labor - 41 weeks
[2019-09-17 08:44] LABS: Absolute Lymphocyte Count 2.78 X10^3/uL (0.83-4.51); Absolute Neutrophil Count 7.1 X10^3/uL (2.0-7.7); Basophil# 0.04 X10^3/uL; Basophil% 0.4 % (0-1); Eosinophil# 0.06 X10^3/uL; Eosinophils% 0.6 % (0-5); Hemoglobin 11.6 g/dL (12.0-15.0); Lymphocyte # 2.78 X10^3/ul (4.0); Lymphocyte % 25.6 % (19-41); Mean Corp Hgb Conc 33.1 g/dL (32-36); Mean Corpuscular Hgb 27.8 pg (27.0-32.0); Mean Corpuscular Volume 83.9 fL (81-99); Mean Platelet Vol. 10.8 fl (6.2-12.0); Monocyte# 0.84 X10^3/uL; Monocyte% 7.7 % (0-10); NRBC Flagged by Analyzer 0 % (0-5); Neutrophil # 7.07 X10^3/uL (2.7-7.7); Neutrophil % 65.2 % (47-70); Platelet Count 195 K/mm3 (150-450); RBC Distribution Width CV 13.9 % (11.6-14.6); RBC Distribution Width SD 41.5 fl (35.1-43.9); Red Blood Count 4.17 M/mm3 (4.2-5.4); White Blood Count 10.8 K/mm3 (4.4-11.0)
[2019-09-17] MEDS: Lactated Ringers 500 ML 999 ML IV (09:28)
[2019-09-17 10:07] LABS: Probe Check PASS; Specimen Processing Control PASS
[2019-09-17] MEDS: fentaNYL-bupivacaine (epidural) 100 ML BAG EPIDURAL (10:40)
[2019-09-17] MEDS: Lactated Ringers 1,000 ML 200 ML IV (13:54)
[2019-09-17] MEDS: Oxytocin 30 units/NS 500 ml 30 UNITS/500 ML IV.SOLN 334 UNITS IV (14:21)
[2019-09-17] MEDS: Methylergonovine 0.2 MG/ML Ampul IM (14:26)
--- NOTE | 2019-09-17 14:37 | PCM.OPRPT ---
Problem List (1) 41 weeks gestation of Status: Acute (2) Spontaneous onset of labor Status: Acute Vaginal Delivery Maternal Presentation: Active Labor Method of Induction: Amniotomy Amniotic Membrane Rupture Type: Artificial Amniotic Fluid Description: Clear Final MICHELL: 09/10/19 Final MICHELL Source: US <20 weeks Gestational age: 41 Weeks and 0 Days Date of Procedure: 09/17/19 Pre-Operative Diagnosis: Labor Post-Operative Diagnosis: S/P Surgery/ Procedure Performed: Spontaneous Vaginal Delivery Type of Anesthesia: Epidural Description of Procedure: Patient was FD at +2 station with spontaneous urge to push. She pushed well through two contractions to deliver head over intact perineum in OA to JUSTYNA with loose nuchal x1, but head followed immediately by body. Cord was wrapped around infant x2. The was then placed on the maternal abdomen. The cord was doubly clamped and cut by FOB under CNM supervision at approximately 2 minutes of life and further attended by nursery personnel. Cord blood was obtained. With gentle traction the placenta delivered spontaneously and appeared intact on inspection. With steady trickle of blood, IM Methergine given in the right maternal thigh. Fundus felt at u/2, midline and firm. With massage, uterus at u/4 with cervix visualized. Grade 2 uterine prolapse noted. With reinsertion to normal level, immediate descent back to introitus. Bleeding well controlled with EBL 350. Apgars 8/9. Sponge and needle counts correct x 2. Discussed uterine prolapse with attending Dr. Muller. With bleeding well controlled, will reassess in 24 hours. Presentation: Vertex, JUSTYNA Placental Delivery Description: Spontaneous Placenta Disposition: [facility] Cord Vessel Description: 3 Vessels Cord Entanglement: Around neck x 1, loose - then around shoulder and abdomen Estimated Blood Loss: 350 A gender: Male (1 minute): 8 (5 minute): 9 Episiotomy Description: None Laceration: None Medications given after delivery: IV Pitocin, IM Methergin
[2019-09-17] MEDS: Ondansetron 4 MG/2 ML Vial IV (14:50)
[2019-09-17] MEDS: 0.9% Saline Lock 10 ML Syringe IV (16:51)
[2019-09-17] MEDS: Ibuprofen 600 MG Tablet PO (21:02)
[2019-09-18 06:00] VITALS: BP 110/60; PULSE 70; RESP 18; TEMP 36.9
[2019-09-18 06:14] VITALS: BP 110/60; PULSE 70
--- NOTE | 2019-09-18 08:37 | DCINST_ITS ---
Discharge Diet: No Restrictions Discharge Activity: Return to Normal Activity, May not drive while taking narcotic pain medications., May Shower May resume sexual activity in: 4-6 weeks Additional Activity Instructions:: Nothing in the vagina for 4-6 weeks. You may return to work/school in 6 weeks. Call your doctor if your incision/area has: Continuous Slow Oozing, Sudden Increased Bleeding, Increased Pain/ Swelling, Increased Redness, Foul Smelling Discharge Additional Instructions: If you experience any of the following, contact your healthcare provider. * Bleeding that soaks a pad every hour for 2 hours * Fever 100.4 or higher * Unrelieved incision or abdominal pain * Swelling, redness, discharge or bleeding from your incision or episiotomy site * Your incision begins to separate * Problems urinating (including inability to urinate or burning while urinating). * Visual changes * Severe headache * Flu-like symptoms * Pain or redness in one of both of your breasts * Pain, warmth, tenderness or swelling in your legs, especially the calf area * Frequent nausea and vomiting * Symptoms of depression or anxiety If you experience any of the following, call 911 or go to the nearest Emergency Room. * Chest pain * Problems breathing * Seizure activity * Partial or complete paralysis of a body part, slurred speech, weakness or drooping of the face, or a sudden inability to walk or hold your balance Allergies/Adverse Reactions: Allergies cefprozil [From Cefzil] Allergy (Verified 04/15/18 19:40) Rash Medications to take at Discharge Vits [Prenatabs FA ] 1 tablet PO DAILY 04/15/18 Please Follow Up With: Norma Rivera CNM When: Call to make an appointment with your CNM for a 2 week visit and a 6 week routine visit. Primary Care Physician: Care Physician,No Primary [Primary Care Provider] - Test Results: Test results from this visit will be discussed in further detail at your follow- up appointment, if applicable.
--- NOTE | 2019-09-18 08:38 | PCM.PN.OB ---
Patient Problems: Active and Suspected Problems 41 weeks gestation of (Acute) Spontaneous onset of labor (Acute) Subjective: Denies vaginal pain. Cannot feel uterus when using the restroom. Reports mild cramping with , but using Motrin which helps. Wants to start stool softener as to not strain using the restroom. Denies heavy bleeding. Would like to discharge home today. Objective: VSS. Fundus is firm, midline at u/1. Uterine prolapse assessed and is now a Grade 1. Lochia rubra scant. - Physical Exam Vitals/I&O's: Vital Signs Temp Pulse Resp BP Pulse Ox 98.5 F 70 18 110/60 100 09/18/19 06:00 09/18/19 06:14 09/18/19 06:00 09/18/19 06:14 09/17/19 16:27 Weight: 91.172 kg Body Mass Index (BMI) 32.4 Intake and Output for Last 24 Hours 09/16/19 09/17/19 09/18/19 23:59 23:59 23:59 Intake Total 2090.00 / 2090.00 Output Total 1500 / 1500 Balance 590.00 / 590.00 General: Alert, Oriented x3, Cooperative HEENT: Atraumatic, PERRLA, EOMI, Normocephalic Neck: Supple, No JVD, Negative Carotid Bruits Lungs: Clear to auscultation, Normal air movement Cardiovascular: Regular rate, No murmurs Abdomen: Bowel Sounds Present, Soft, Non Tender, Passing Flatus, - - fundus u/1 Extremities: No edema, Capillary Refill Less than 3 Seconds Skin: No rashes, No breakdown Musculoskeletal: No Tenderness to Palpation of Joints or Extremities Neurological: Cranial nerves II-XII grossly intact Psych/Mental Status: Normal Affect, Appropriate Comment: Uterine prolapse grade 1 Laboratory Results 09/17/19 08:25: WBC 10.8, RBC 4.17 L, Hgb 11.6 L, Hct 35.0 L, MCV 83.9, MCH 27.8, MCHC 33.1, RDW Std Deviation 41.5, RDW Coeff of Peggy 13.9, Plt Count 195, MPV 10.8, Immature Gran % (Auto) 0.500, Neut % (Auto) 65.2, Lymph % (Auto) 25.6, [place] % (Auto) 7.7, Eos % (Auto) 0.6, Baso % (Auto) 0.4, Absolute Neuts (auto) 7.1, Absolute Lymphs (auto) 2.78, Nucleated RBC % 0 09/17/19 08:25: Blood Type A POSITIVE, Antibody Screen NEGATIVE 09/17/19 08:45: COVID-19 (WADE) Negative Current Medications Acetaminophen (Tylenol) 1,000 mg PO Q8H PRN PRN PRN Reason: Pain Score 1-3/10 Bisacodyl (Dulcolax) 10 mg RECTAL UD PRN PRN Reason: If no BM Hydrocortisone (Hytone) 1 applic TOPICAL TID PRN PRN; Protocol PRN Reason: Discomfort Ibuprofen (Motrin) 600 mg PO Q6H PRN PRN PRN Reason: Pain Score 1-3/10 Last Admin: 09/17/19 21:02 Dose: 600 mg Documented by: Methylergonovine Maleate (Methergine) 0.2 mg IM X1 PRN PRN Reason: Excess bleeding/uterine atony Last Admin: 09/17/19 14:26 Dose: 0.2 mg Documented by: Ondansetron HCl (Zofran) 4 mg IV Q4H PRN PRN PRN Reason: Nausea Oxycodone HCl (Oxyir) 5 - 10 mg PO Q4H PRN PRN PRN Reason: Pain Score 4-10/10 Senna/Docusate Sodium (Senokot-S, Haritha-Colace) 1 - 2 tablet PO DAILY PRN PRN PRN Reason: Constipation Simethicone (Mylicon) 80 mg PO PCHS PRN PRN Reason: Indigestion/Stomach pain Sodium Chloride () 5 - 15 ml IV UD PRN PRN Reason: SALINE FLUSH Last Admin: 09/17/19 16:51 Dose: 10 ml Documented by: Throat Lozenges (Dermoplast (Sp)) 1 applic TOPICAL 4X/DAY PRN PRN; Protocol PRN Reason: Pain/Inflammation Last Admin: 09/17/19 21:02 Dose: 1 applic Documented by: Medical Necessity - Tobacco Use Smoking Status: Never smoker Assessment/Plan All Active Problems 41 weeks gestation of (Acute) Spontaneous onset of labor (Acute) A/P: s/p day #1 Normal involution and course Continue Motrin for cramping Uterine prolapse better at Grade 1, will reassess in 2 weeks male Would like to discharge today Educated on increased bleeding/cramping and signs of depression To have appt in 2 weeks and routine PP visit in 6 weeks
[2019-09-18] MEDS: Ibuprofen 600 MG Tablet PO (08:40)
[2019-09-18 08:45] VITALS: BP 125/77; PULSE 85; RESP 16; TEMP 36.9; O2SAT 97
[2019-09-18 08:46] VITALS: BP 125/77; PULSE 90
[2019-09-18 13:57] VITALS: BP 126/58; PULSE 76
[2019-09-18 14:00] VITALS: BP 126/58; PULSE 76; RESP 16; TEMP 36.8
== END 2019-09-18 16:50 | disposition home or self-care (01) | DRG 807 ==
LOC: WPOUT 08:13 → WP 08:13
PROVIDERS: Admitting Provider Obstetrics & Gynecology; Referring Provider Obstetrics & Gynecology; Visit Provider Obstetrics & Gynecology
DX: O48.0 Post-term pregnancy (principal); Z37.0 Single live birth; O34.523 Maternal care for prolapse of gravid uterus, third trimester; O69.81X0 Labor and delivery complicated by cord around neck, without compression, not applicable or unspecified; O69.82X0 Labor and delivery complicated by other cord entanglement, without compression, not applicable or unspecified; Z3A.41 41 weeks gestation of pregnancy
CPT/HCPCS: 59025; 59050; 85025; 86850; 86900; 86901; 87635; 99218; G2023; J7120; A4216; G0378; J2405; U0003

== ENCOUNTER → 2020-12-16 09:45 | Outpatient (CLI) | payer OTHER, SELFPAY ==
[2020-12-16 10:43] LABS: Glucose GTT-Gestation. Fasting 89 mg/dL (<105)
[2020-12-16 11:47] LABS: Glucose GTT-Gestational 1 Hr 159 mg/dL (<190)
[2020-12-16 12:41] LABS: Glucose GTT-Gestational 2 Hr 134 mg/dL (<165)
[2020-12-16 13:58] LABS: Glucose GTT-Gestational 3 Hr 121 L (<145)
== END ==
PROVIDERS: Referring Provider Obstetrics & Gynecology; Visit Provider Obstetrics & Gynecology
DX: O24.912 Unspecified diabetes mellitus in pregnancy, second trimester (principal); Z3A.00 Weeks of gestation of pregnancy not specified
CPT/HCPCS: 36415; 82951; 82952

== ENCOUNTER → 2021-03-14 | Outpatient (CLI) | payer OTHER, SELFPAY | END | disposition home or self-care (01) | LOC: LABSPEC 12:26 | PROVIDERS: Visit Provider Student in an Organized Health Care Education/Training Program | DX: Z36.85 Encounter for antenatal screening for Streptococcus B (principal) | CPT/HCPCS: 87081; 87635; U0005; U0003 ==

== ENCOUNTER 2021-03-16 19:42 | Inpatient (IN) | payer OTHER, SELFPAY ==
[2021-03-16] VITALS (40 sets, daily range): BP systolic 117–157; BP diastolic 54–94; PULSE 67–105; TEMP 36.3–36.5; O2SAT 93–100; BMI 33.7
[2021-03-16] MEDS: Lactated Ringers 500 ML 999 ML IV (20:05)
[2021-03-16] MEDS: Lactated Ringers 1,000 ML 200 ML IV (20:05)
[2021-03-16 20:20] LABS: Absolute Lymphocyte Count 2.83 X10^3/uL (0.83-4.51); Absolute Neutrophil Count 7.1 X10^3/uL (2.0-7.7); Basophil# 0.05 X10^3/uL; Basophil% 0.5 % (0-1); Eosinophil# 0.03 X10^3/uL; Eosinophils% 0.3 % (0-5); Hematocrit 36.6 % (37-47); Hemoglobin 12.1 g/dL (12.0-15.0); Lymphocyte # 2.83 X10^3/ul (0.83-4.51); Lymphocyte % 26.1 % (19-41); Mean Corp Hgb Conc 33.1 g/dL (32-36); Mean Corpuscular Hgb 27.1 pg (27.0-32.0); Mean Corpuscular Volume 82.1 fL (81-99); Mean Platelet Vol. 10.5 fl (6.2-12.0); Monocyte# 0.83 X10^3/uL; Monocyte% 7.7 % (0-10); NRBC Flagged by Analyzer 0 % (0-5); Neutrophil # 7.05 X10^3/uL (2.7-7.7); Neutrophil % 64.9 % (47-70); Platelet Count 274 K/mm3 (150-450); RBC Distribution Width CV 14.1 % (11.6-14.6); RBC Distribution Width SD 41.3 fl (35.1-43.9); Red Blood Count 4.46 M/mm3 (4.2-5.4); White Blood Count 10.8 K/mm3 (4.4-11.0)
[2021-03-16] MEDS: fentaNYL-bupivacaine (epidural) 100 ML BAG EPIDURAL (21:16)
[2021-03-16] MEDS: Oxytocin 30 units/NS 500 ml 30 UNITS/500 ML IV.SOLN 334 UNITS IV (23:52)
--- NOTE | 2021-03-16 23:58 | PCM.HP.BLA ---
History and Physical Date of Admission: 03/16/21 Chief complaint: Contractions History present illness: 30-year-old G3, P2 at 41 weeks and 0 days with MICHELL 03/09/2021 by LMP arrives with contractions. Denies headache, visual changes, chest pain, shortness of breath, nausea vomiting, right upper quadrant pain. Patient states good movement. Obstetric history: G1: 41-week female 04/17/2018 G2: 41-week male 09/17/2019 G3: Current Past medical history: None Medications: None Past surgical history: [place] teeth extraction Allergies: Cefzil Social history: Denies smoking, alcohol use, drug use Family history: No history of DVT or PE Review of systems: Besides above pertinent positives a full review of systems was performed and found to be negative Physical exam: Vitals: Blood pressure 132/69 pulse 82 General: Normal-appearing no acute distress HEENT: Normocephalic atraumatic no cervical adenopathy Cardiac/Respiratory: no use of accessory muscles, nonlabored breathing Abdomen: soft, nontender, gravid Extremities: no peripheral edema, normal peripheral pulses Psych: normal affect normal demeanor nonpressured speech Labs: hgb 12.1 A/P 30yo at 41wk/0d in labor Admit labor and delivery CEFM GBS neg Routine orders
--- NOTE | 2021-03-16 23:58 | EX.PCM.OBRPT ---
Vaginal Delivery Findings Description of Procedure: Normal spontaneous vaginal delivery of a viable male , vertex position JUSTYNA. Head and shoulders delivered with ease. Cord cut and clamped. Baby handed off to patient. Placenta delivered via cord traction and fundal massage. No lacerations noted. EBL 300 cc Apgars 8/9
[2021-03-17] VITALS (30 sets, daily range): BP systolic 115–131; BP diastolic 64–86; PULSE 69–92; RESP 16–18; TEMP 36.2–36.9; O2SAT 94–100
--- NOTE | 2021-03-17 00:53 | NURSING ---
forebag ruptured per dr gasca after SROM.
[2021-03-17] MEDS: 0.9% Saline Lock 10 ML Syringe IV (02:30)
--- NOTE | 2021-03-17 08:37 | NURSING ---
This RN agrees with VS's done by nursing scheduler. This RN's charted assessment .
[2021-03-17] MEDS: Ibuprofen 600 MG Tablet PO (15:16)
[2021-03-17] MEDS: Acetaminophen 500 MG Tablet 1000 MG PO (20:18)
[2021-03-18 03:17] VITALS: BP 127/86; PULSE 76; RESP 16; TEMP 36.6
[2021-03-18] MEDS: Acetaminophen 500 MG Tablet 1000 MG PO (03:21)
--- NOTE | 2021-03-18 07:37 | PCM.PN.OB ---
Subjective Subjective . Patient feeling well. Lochia minimal. Breast-feeding going well. Reports small hemorrhoid which is causing some discomfort that is tolerable. Objective Data Objective Data Vital Signs: Vital Signs Temp Pulse Resp BP Pulse Ox 97.9 F 76 16 127/86 H 94 03/18/21 03:17 03/18/21 03:17 03/18/21 03:17 03/18/21 03:17 03/17/21 15:33 Oxygen Delivery Method Room Air Weight: 94.8 kg Body Mass Index (BMI) 33.7 Intake & Output: Intake and Output for Last 24 Hours 03/16/21 03/17/21 03/18/21 23:59 23:59 23:59 Intake Total 1240 / 1240 1000 / 1000 Output Total 1999 / 1999 Balance 1240 / 1240 -1000 / -1000 Lab / Micro Data Result Diagrams: 03/16/21 20:05 Physical Exam Const alert, oriented x3 and no apparent distress HEENT normocephalic Head and Scalp: atraumatic Neck full ROM Resp normal respiratory effort Cardio regular rate GI normal to inspection, nondistended, normoactive bowel sounds GI Narrative: Uterus 2 cm below umbilicus Back/Spine normal ROM Extremity normal to inspection Extremity Narrative: Minimal pedal edema Neuro no focal motor deficits and no sensory deficits noted Psych mental status grossly normal and affect normal Assessment & Plan (1) Vaginal delivery: PLAN: . Breast-feeding. Small hemorrhoid: Discussed supportive care with which shobha pads, stool softeners, creams if needed. Discharge home today.
--- NOTE | 2021-03-18 07:39 | PCM.DC ---
Discharge Instructions Diet Discharge Diet: No restrictions Activity Discharge Activity: Return to Normal Activity and May Shower May resume sexual activity in: 4-6 weeks Weight Bearing Status: Weight bearing as tolerated Lifting Restrictions: No greater than 25 pounds Dressing / Incision Call your doctor if you observe: Fever of 101 or Higher, Change in Color, Inability to urinate, Using more than 1 pad per hour, Shortness of breath, Dizziness, Swelling in the ankles, Chest pain and Calf discomfort Follow Up Care Please Follow Up With: Elida Albarado DO When: 2-week telehealth appointment and 6-week visit Test Results: Test results from this visit will be discussed in further detail at your follow-up appointment, if applicable. Discharge Plan Admission Admit Date/Time: 03/16/21 19:42 Primary Reason for Your Visit: Labor Attending Provider: Kenton Albarado Primary Care Provider: Care Physician,Susan Primary Discharge Orders/Prescriptions Prescriptions: No Action Prenatabs FA 1 TABLET tablet 1 tab PO DAILY RF: 0 Referrals / Follow Up: Care Physician,No Primary [Primary Care Provider] - Disposition Disposition (needs filled in before D/C Order can be placed): Home, Self Care
[2021-03-18 07:57] VITALS: BP 134/84; PULSE 71; RESP 18; TEMP 36.2; O2SAT 96
--- NOTE | 2021-03-18 10:24 | NURSING ---
Educated patient on calling OB office on Saturday to schedule 2 week [address] visit with Dr. Albarado.
== END 2021-03-18 11:15 | disposition home or self-care (01) | DRG 807 ==
LOC: WPOUT 19:47 → WP 19:47
PROVIDERS: Admitting Provider Obstetrics & Gynecology; Referring Provider Obstetrics & Gynecology; Visit Provider Obstetrics & Gynecology
DX: O80 Encounter for full-term uncomplicated delivery (principal); Z37.0 Single live birth; Z3A.41 41 weeks gestation of pregnancy; K64.9 Unspecified hemorrhoids
CPT/HCPCS: 59025; 59050; 85025; 86850; 86900; 86901; 99218; J7120; A4216; G0378

== ENCOUNTER 2023-03-27 16:40 | Outpatient (CLI) | payer OTHER, SELFPAY ==
[2023-03-27 17:02] VITALS: BP 143/84; PULSE 75
[2023-03-27 17:05] VITALS: BMI 35.0
--- NOTE | 2023-03-27 18:15 | OB.TRI.NOTE ---
HPI - General HPI Narrative ZIGGY LOPEZ, is a 32 F at 41.2 weeks gestation who presents to triage for NST for postdates. Patient was sent over from office. She was offered induction of labor and declines at this time. She is scheduled for induction on 03/29/23. [facility] Medical History (Updated 03/27/23 @ 18:30 by Za Yeager CNM) Anxiety Depression Home Medications vits,calcium no.78-iron fumarate-folic acid 29 mg-1 mg tablet (Prenatabs FA) 1 tab PO DAILY 04/15/18 [History Last Taken 03/15/21 08:00] Allergy/AdvReac Type Severity Reaction Status Date / Time cefprozil [From Cefzil] Allergy Rash Verified 03/16/21 19:36 hornet venom AdvReac Severe Anaphylaxis Verified 03/27/23 17:12 venom-wasp AdvReac Anaphylaxis Verified 03/27/23 17:12 Social History Smoking Status: Never smoker History Elective abortions Hx Para 2 Spontaneous abortions Hx # Term Pregnancies Ectopic pregnancies Hx # Pregnancies Multiple births # of living children ROS Eyes Eyes: Denies blurry vision Cardiovascular Cardiovascular: Reports none; Denies chest pain at rest, chest pain with activity or dizziness Respiratory/Chest Respiratory/Chest: Denies cough or dyspnea Gastrointestinal Gastrointestinal: Reports none and other; Denies diarrhea or vomiting Genitourinary Genitourinary: Denies dysuria Musculoskeletal Musculoskeletal: Reports none Integumentary Integumentary: Reports none; Denies rash Neurologic Neurologic: Denies dizziness, headache(s) or other visual disturbances Psychiatric Psychiatric: Reports none Physical Exam Const alert, oriented x3 and no apparent distress General Appearance: cooperative Orientation / Consciousness: awake Exam Limitations: no limitations HEENT normocephalic Head and Scalp: normal to inspection Eyes General Eye: normal appearance of both eyes Neck full ROM and no lymphadenopathy Lymph Lymphatic: no lymphadenopathy noted Chest inspection of chest normal Resp normal respiratory effort, normal air movement and clear to auscultation bilaterally Effort and Inspection: able to speak in complete sentences and symmetric chest movement Cardio regular rate and regular rhythm GI normal to inspection, nondistended, normoactive bowel sounds Back/Spine normal ROM Extremity full ROM and no calf tenderness Skin no rashes or lesions noted General Skin Exam: no breakdown Neuro oriented x3 and CN's II-XII intact bilaterally Psych mental status grossly normal and thought process normal NST FHR Rate Baby A Baseline: 155 Variability:: Moderate Accelerations:: 15 x 15 Decelerations:: None FHR Category:: Category I Uterine Activity:: Irregular contractions that palpate mild and relaxed in between Assessment & Plan (1) 41 weeks gestation of : (2) Post-dates : (3) Multiparous: (4) History of macrosomia in infant in prior , currently : (5) History of elevated glucose: COMMENT: Refused 3 hour GTT PLAN: Plan NST reactive, Cat. 1 tracing R/B/A to induction of labor reviewed with patient again- patient declines Reviewed labor precautions and kick counts CE 4-5cm in office today Will return on Saturday morning for induction of labor unless spontaneous onset prior Dr. Cooper notified of above and involved with plan of care
== END 2023-03-27 18:25 | disposition home or self-care (01) ==
LOC: WPOUT 16:48 → WP 16:51
PROVIDERS: Referring Provider Advanced Practice Midwife; Visit Provider Advanced Practice Midwife
DX: O48.0 Post-term pregnancy (principal); O09.43 Supervision of pregnancy with grand multiparity, third trimester; O99.891 Other specified diseases and conditions complicating pregnancy; R73.9 Hyperglycemia, unspecified; Z3A.41 41 weeks gestation of pregnancy; Z53.29 Procedure and treatment not carried out because of patient's decision for other reasons; Z87.59 Personal history of other complications of pregnancy, childbirth and the puerperium
CPT/HCPCS: 59025; 59050; 99221; G0378

== ENCOUNTER 2023-03-28 03:45 | Inpatient (IN) | payer OTHER, SELFPAY ==
[2023-03-28] VITALS (34 sets, daily range): BP systolic 119–191; BP diastolic 73–129; PULSE 65–109; RESP 16–17; TEMP 36.2–37.7; O2SAT 95–100; BMI 34.8
[2023-03-28 04:09] LABS: Absolute Lymphocyte Count 2.78 X10^3/uL (0.83-4.51); Absolute Neutrophil Count 9.8 X10^3/uL (2.0-7.7); Basophil# 0.08 X10^3/uL; Basophil% 0.6 % (0-1); Eosinophil# 0.09 X10^3/uL; Eosinophils% 0.6 % (0-5); Hematocrit 35.6 % (37-47); Hemoglobin 11.6 g/dL (12.0-15.0); Lymphocyte # 2.78 X10^3/ul (0.83-4.51); Lymphocyte % 19.9 % (19-41); Mean Corp Hgb Conc 32.6 g/dL (32-36); Mean Corpuscular Hgb 26.5 pg (27.0-32.0); Mean Corpuscular Volume 81.3 fL (81-99); Mean Platelet Vol. 11.1 fl (6.2-12.0); Monocyte% 7.9 % (0-10); NRBC Flagged by Analyzer 0 % (0-5); Neutrophil # 9.83 X10^3/uL (2.7-7.7); Neutrophil % 70.4 % (47-70); Platelet Count 220 K/mm3 (150-450); RBC Distribution Width CV 13.7 % (11.6-14.6); RBC Distribution Width SD 39.6 fl (35.1-43.9); Red Blood Count 4.38 M/mm3 (4.2-5.4)
[2023-03-28] MEDS: Lactated Ringers 1,000 ML 200 ML IV (04:20)
[2023-03-28 04:52] LABS: Bedside Glucose 89 mg/dL (74-106)
[2023-03-28 05:42] LABS: Syphilis Antibodies Non-reactive
[2023-03-28] MEDS: Oxytocin 15 Units/NS 250ml 15 UNITS/250 ML IV.SOLN 83 UNITS IV (06:35)
[2023-03-28] MEDS: Oxytocin 10 UNITS/ML Vial IM (06:36)
--- NOTE | 2023-03-28 06:55 | EX.PCM.OBRPT ---
Assessment & Plan (1) Vaginal delivery: (2) Post-dates : (3) Precipitous delivery: (4) Spontaneous onset of labor: (5) Spontaneous rupture of amniotic membranes: (6) Meconium in amniotic fluid: (7) Vaginal hematoma: Maternal Data Information MICHELL Calculator Estimated Delivery Date Method Current WG Current Estimate 03/18/23 Manual 41w 3d Doctor Who Attended Delivery: Leo Dominguez Vaginal Delivery Maternal Presentation Maternal Presentation: Active Labor Maternal Presentation: at 41.3 weeks gestation that arrived in spontaneous labor. Operative Information Date of Procedure: 03/28/23 Pre-Operative Diagnosis: Term gestation, Spontaneous onset of labor Post-Operative Diagnosis: Precipitous delivery, , live male Surgery / Procedure Performed: Spontaneous Vaginal Delivery Type of Anesthesia: None Estimated Blood Loss: 150 Time of Delivery: 06:32 Findings Description of Procedure: Patient progressed quickly to complete dilation. SROM with meconium fluid. Patient in hands and knees position and involuntarily bearing down. With minimal maternal effort, head delivered followed by anterior shoulder and remainder of body. Vigorous male passed through maternal legs and placed skin to skin with patient. She was repositioned to sitting position and infant was attended to by nursing staff. Pitocin started to initiate active management of the third stage of labor. 3 vessel cord clamped and cut by FOB after delay. Infant placed skin to skin. Placenta delivered spontaneously and intact. Vagina and perineum intact. Small vaginal hematoma noted to right side near introits. Fundus firm 2 below U. Hemostasis obtained. EBL 150 cc. APGARS 8/9 Patient and bonding well at this time. Dr. Cooper notified of delivery. Presentation: Vertex Amniotic Membrane Rupture Type: Spontaneous Time of Membrane Rupture: 619 Amniotic Fluid Description: Moderate meconium Placental Delivery Description: Spontaneous Placenta Disposition: [facility] Cord Vessel Description: 3 Vessels Cord Entanglement: None Infant A Gender: Male (1 minute): 8 (5 minute): 9 Delayed Cord Clamping: Yes Post Vaginal Delivery Medications Given After Delivery: IV Pitocin and IM Pitocin Episiotomy Description: None Laceration: None Complication Complications: None
--- NOTE | 2023-03-28 07:11 | PCM.HP.OB ---
HPI - General General Date of Admission: 03/28/23 HPI Narrative ZIGGY LOPEZ, is a 32 F at 41.3 weeks gestation who presents in spontaneous labor. Maternal Data Information MICHELL Calculator Estimated Delivery Date Method Current WG Current Estimate 03/18/23 Manual 41w 3d PFSH PFSH Medical History Anxiety Depression macrosomia Home Medications vits,calcium no.78-iron fumarate-folic acid 29 mg-1 mg tablet (Prenatabs FA) 1 tab PO DAILY 04/15/18 [History Last Taken 03/15/21 08:00] Allergy/AdvReac Type Severity Reaction Status Date / Time cefprozil [From Cefzil] Allergy Rash Verified 03/28/23 04:42 hornet venom AdvReac Severe Anaphylaxis Verified 03/28/23 04:42 venom-wasp AdvReac Anaphylaxis Verified 03/28/23 04:42 Social History Smoking Status: Never smoker History Elective abortions Hx Para 3 Spontaneous abortions Hx # Term Pregnancies Ectopic pregnancies Hx # Pregnancies Multiple births # of living children ROS Eyes Eyes: Denies blurry vision, change in vision or spots in vision ENT HEENT: Denies dizziness or headache(s) Cardiovascular Cardiovascular: Denies abdominal pain, chest pain or dyspnea Respiratory/Chest Respiratory/Chest: Denies cough, dyspnea, shortness of breath at rest or shortness of breath with exertion Gastrointestinal Gastrointestinal: Denies abdominal pain, diarrhea or vomiting Genitourinary Genitourinary: Denies change in urinary stream, difficulty urinating or dysuria Musculoskeletal Musculoskeletal: Reports none Integumentary Integumentary: Denies rash Neurologic Neurologic: Denies dizziness, headache(s), memory loss or weakness Psychiatric Psychiatric: Reports none Vital Signs Vital Signs Vital Signs: 03/28/23 03:29 03/28/23 03:29 03/28/23 03:30 Temperature Temperature Source Pulse Rate 92 Blood Pressure 134/97 H BP Systolic 134 BP Diastolic 97 Pulse Ox 98 03/28/23 03:30 03/28/23 03:29 03/28/23 03:29 Temperature Temperature Source Temporal Pulse Rate 107 H Blood Pressure BP Systolic BP Diastolic Pulse Ox 99 03/28/23 03:29 03/28/23 04:57 03/28/23 04:57 Temperature 98.6 F Temperature Source Pulse Rate 109 H Blood Pressure 191/129 H BP Systolic 191 BP Diastolic 129 Pulse Ox 03/28/23 04:56 03/28/23 04:56 03/28/23 04:56 Temperature 97.5 F L Temperature Source Temporal Pulse Rate Blood Pressure BP Systolic BP Diastolic Pulse Ox 97 03/28/23 04:58 03/28/23 04:58 03/28/23 06:52 Temperature Temperature Source Pulse Rate 107 H Blood Pressure 140/84 H 133/85 H BP Systolic 140 133 BP Diastolic 84 85 Pulse Ox 03/28/23 06:52 03/28/23 06:52 03/28/23 06:57 Temperature Temperature Source Pulse Rate 86 85 Blood Pressure BP Systolic BP Diastolic Pulse Ox 98 03/28/23 06:57 03/28/23 06:52 03/28/23 06:52 Temperature Temperature Source Temporal Pulse Rate Blood Pressure BP Systolic BP Diastolic Pulse Ox 98 99 03/28/23 06:52 03/28/23 07:05 03/28/23 07:05 Temperature 97.6 F L Temperature Source Pulse Rate 89 Blood Pressure BP Systolic BP Diastolic Pulse Ox 98 03/28/23 07:07 03/28/23 07:07 03/28/23 07:10 Temperature Temperature Source Pulse Rate 80 80 Blood Pressure 135/80 H BP Systolic 135 BP Diastolic 80 Pulse Ox 03/28/23 07:10 Temperature Temperature Source Pulse Rate Blood Pressure BP Systolic BP Diastolic Pulse Ox 99 Weight Weight: 215 lb 13.321 oz Body Mass Index (BMI) 34.8 Physical Exam Const alert, oriented x3 and no apparent distress General Appearance: cooperative Orientation / Consciousness: awake Exam Limitations: no limitations HEENT normocephalic Head and Scalp: normal to inspection Eyes General Eye: normal appearance of both eyes Neck full ROM and no lymphadenopathy Lymph Lymphatic: no lymphadenopathy noted Chest inspection of chest normal Resp normal respiratory effort, normal air movement and clear to auscultation bilaterally Effort and Inspection: able to speak in complete sentences and symmetric chest movement Cardio regular rate and regular rhythm GI normal to inspection, nondistended, normoactive bowel sounds Manual OB Exam: presentation cephalic, dilated 4, effaced 80 and station 0 Amniotic Fluid: clear amniotic fluid Back/Spine normal ROM Extremity full ROM and no calf tenderness Skin no rashes or lesions noted General Skin Exam: no breakdown Neuro oriented x3 and CN's II-XII intact bilaterally Psych mental status grossly normal and thought process normal Labs Labs Labs: Blood Type A POSITIVE Antibody Screen NEGATIVE Hct 35.6 % (37-47) L Hgb 11.6 g/dL (12.0-15.0) L Syphilis Total Ab Non-reactive Rubella IgG Antibody 65.7 IU/mL Hep Bs Antigen Non-Reactive (Nonreactive) Hepatitis C Antibody Non-Reactive (Nonreactive) Hepatitis C Ab (EIA) <0.1 s/co ratio (0.0-0.9) HIV 1&2 Antibody Non-Reactive (Nonreactive) Glucose 1 Hr 50 gm 119 mg/dL (70-140) Gest Glucose Tolerance MG/DL Rhogam given: No GBS negative Assessment & Plan (1) History of elevated glucose: COMMENT: Refused 3 hour GTT (2) History of macrosomia in in prior , currently : (3) Multiparous: (4) Post-dates : (5) Spontaneous onset of labor: (6) 41 weeks gestation of : PLAN: Plan CE /-2 Admit to labor and delivery Routine labs Pain medications/epidural if indicated Anticipate Dr. Cooper notified and is collaboration physician
[2023-03-28] MEDS: Naproxen 500 MG Tablet PO (09:45)
[2023-03-28] MEDS: Benzocaine/Lanolin/Aloe Vera 1 SPRAY EACH TOPICAL (11:16)
[2023-03-28] MEDS: Acetaminophen 500 MG Tablet 1000 MG PO (13:28)
[2023-03-29 04:51] VITALS: BP 125/74; PULSE 84
[2023-03-29 04:53] VITALS: BP 125/74; PULSE 84; RESP 15; TEMP 36.8; O2SAT 98
--- NOTE | 2023-03-29 08:28 | PCM.PROGNOTE ---
Subjective Subjective patient seen at bedside, doing well. Patient reports good pain control. lochia mild. breast feeding. Objective Data Objective Data Vital Signs: Vital Signs Temp Pulse Resp BP Pulse Ox O2 Del Method 98.2 F 84 15 125/74 H 98 Room Air 03/29/23 04:53 03/29/23 04:53 03/29/23 04:53 03/29/23 04:53 03/29/23 04:53 03/29/23 04:53 Oxygen Delivery Method Room Air Weight: 97.9 kg Body Mass Index (BMI) 34.8 Intake & Output: Intake and Output for Last 24 Hours 03/27/23 03/28/23 03/29/23 23:59 23:59 23:59 Intake Total 690 / 690 Output Total 150 / 150 Balance 540 / 540 Lab / Micro Data 03/28/23 04:00 Physical Exam Narrative fundus firm Const alert and oriented x3 General Appearance: cooperative HEENT normocephalic Neck General: normal visual inspection GI soft to palpation and non-distended GI Narrative: Fundus firm Extremity normal to inspection and no calf tenderness Skin no rashes or lesions noted Neuro oriented x3 and CN's II-XII intact bilaterally Psych mental status grossly normal Assessment & Plan Assessment/Plan (1) Vaginal delivery: (2) 41 weeks gestation of : (3) Post-dates : PLAN: Plan PPD#1 , Doing well Routine care pain mgmt ambulation dc home
--- NOTE | 2023-03-29 08:29 | DCINST_ITS ---
Discharge Instructions Diet Discharge Diet: No restrictions Activity May resume sexual activity in: 6-8 weeks Dressing / Incision Call your doctor if you observe: Fever of 101 or Higher, Inability to urinate, Using more than 1 pad per hour and Uncontrolled pain Follow Up Care Please Follow Up With: Valerie Gillette MD When: 1-2 weeks post and again at 6 weeks post . [phone] Test Results: Test results from this visit will be discussed in further detail at your follow- up appointment, if applicable. Discharge Plan Admission Admit Date/Time: 03/28/23 03:45 Attending Provider: Za Yeager Primary Care Provider: Care Physician,Susan Primary Discharge Orders/Prescriptions Prescriptions: New acetaminophen 500 mg Tablet 1,000 mg PO Q6H PRN PRN (Reason: Pain 1-10 Or Fever) Qty: 0 0RF naproxen 500 mg Tablet 500 mg PO Q8H PRN PRN (Reason: Pain Score 1-3) Qty: 0 0RF Continued Prenatabs FA 1 TABLET tablet 1 tab PO DAILY Referrals / Follow Up: Care Physician,No Primary [Primary Care Provider] - Disposition Disposition (needs filled in before D/C Order can be placed): Home, Self Care
[2023-03-29 09:16] VITALS: BP 129/77; PULSE 72
[2023-03-29 09:20] VITALS: BP 129/77; PULSE 72; RESP 16; TEMP 36.4
[2023-03-29] MEDS: Naproxen 500 MG Tablet PO (09:31)
[2023-03-29 13:55] VITALS: BP 144/77; RESP 16; TEMP 36.5
== END 2023-03-29 14:45 | disposition home or self-care (01) | DRG 807 ==
LOC: WPOUT 03:48 → WP 03:48
PROVIDERS: Admitting Provider Advanced Practice Midwife; Referring Provider Advanced Practice Midwife; Visit Provider Advanced Practice Midwife
DX: O48.0 Post-term pregnancy (principal); Z37.0 Single live birth; O99.814 Abnormal glucose complicating childbirth; O42.92 Full-term premature rupture of membranes, unspecified as to length of time between rupture and onset of labor; O62.3 Precipitate labor; O77.0 Labor and delivery complicated by meconium in amniotic fluid; Z3A.41 41 weeks gestation of pregnancy; Z87.59 Personal history of other complications of pregnancy, childbirth and the puerperium
CPT/HCPCS: 59025; 59050; 82962; 85025; 86780; 86850; 86900; 86901; 99221; J7120; G0378